=== PATIENT | female | born 1985 | race Caucasian/White ===

== ENCOUNTER 2016-08-29 18:18 | Inpatient (IN) | payer BC, OTHER ==
[2016-08-29] MEDS ORDERED: Dinoprostone* 10 MG VAG.SUPP VAGINAL ONE (19:00)
[2016-08-29] MEDS ORDERED: Zolpidem TAB* 5 MG PO PRN (20:01)
[2016-08-30] MEDS ORDERED: Oxytocin in LR* 20 UNITS/1,000 ML BAG IVPB SCH (09:00)
[2016-08-30 09:08] LABS: Hematocrit 40 % (35-47); Hemoglobin 13.6 g/dl (12.0-16.0); Mean Corpuscular HGB Conc 34 g/dl (31-36); Mean Corpuscular Hemoglobin 30 pg (27-31); Mean Corpuscular Volume 88 fL (80-97); Mean Platelet Volume 10 um3 (7.4-10.4); Red Blood Count 4.54 10^6/ul (4.0-5.4); Red Cell Distribution Width 14 % (10.5-15); White Blood Count 10.1 10^3/ul (3.5-10.8)
[2016-08-30] MEDS ORDERED: OBEPIDURAL* 250 ML ONE (13:46)
[2016-08-30] MEDS ORDERED: Famotidine TAB* 20 MG PO PRN (14:21)
[2016-08-30] MEDS ORDERED: Phenylephrine IV* 40 MCG/ML 10 ML SYRINGE IV PUSH PRN ×2 (14:21)
[2016-08-30] MEDS ORDERED: Sodium Citrate/Citric Acid* 15 ML UDC PO PRN (14:21)
[2016-08-31] MEDS ORDERED: Gentamicin ADULT (*) 40 MG/ML VIAL IVPB ONE (01:31)
[2016-08-31] MEDS ORDERED: Clindamycin 900 MG IVPREMIX(* 900 MG/50 ML SDV IV ONE (01:31)
[2016-08-31] MEDS ORDERED: Lidocaine 2% EPI 1:200000 MPF* 20 ML VIAL ONE (01:44)
[2016-08-31] MEDS ORDERED: fentaNYL* 50 MCG/ML 2 ML VIAL (100 MCG VIAL) ONE (01:45)
[2016-08-31] MEDS ORDERED: OXYTOCIN* 10 UNITS/ML 1 ML VIAL ONE ×2 (01:54→02:54)
[2016-08-31] MEDS ORDERED: Phenylephrine IV* 40 MCG/ML 10 ML SYRINGE ONE (02:22)
[2016-08-31] MEDS ORDERED: Morphine PF AMP (0.5MG/ML)* 5 MG/10 ML AMP ONE (02:25)
[2016-08-31] MEDS ORDERED: Ondansetron INJ* 2 MG/ML VIAL ONE (02:26)
[2016-08-31] MEDS ORDERED: Dexamethasone IV* 4 MG/ML 1 ML (4 MG) ONE (02:26)
[2016-08-31] MEDS ORDERED: Glycerin ADULT SUPP PR PRN (03:17)
[2016-08-31] MEDS ORDERED: fentaNYL* 50 MCG/ML 2 ML VIAL (100 MCG VIAL) IV PRN (03:20)
[2016-08-31] MEDS ORDERED: Acetaminophen IV 1GM/100ML * 100 ML IVPB ONE (03:20)
[2016-08-31] MEDS ORDERED: Nalbuphine* 20 MG/ML 1 ML VIAL IV PRN ×2 (03:20→03:23)
[2016-08-31] MEDS ORDERED: PROCHLORPERAZINE INJ 5 MG/ML 2 ML VIAL IV PRN ×2 (03:20→03:23)
[2016-08-31] MEDS ORDERED: Ondansetron INJ* 2 MG/ML VIAL IV PRN (03:23)
[2016-08-31] MEDS ORDERED: oxyCODONE TAB* 5 MG TAB PO PRN (03:23)
[2016-08-31] MEDS ORDERED: Naloxone* 0.4 MG/ML 1 ML VIAL IV PRN (03:23)
[2016-08-31] MEDS ORDERED: Ketorolac INJ* 30 MG/ML 1 ML VIAL ONE (03:55)
[2016-08-31] MEDS ORDERED: Ketorolac INJ* 30 MG/ML 1 ML VIAL IV ONE (04:00)
[2016-08-31] MEDS: OBEPIDURAL* 250 ML EPIDURAL SCH ×2 (05:07→21:06)
[2016-08-31] MEDS: Acetaminophen TAB* 325 MG PO SCH ×3 (05:08→20:24)
[2016-08-31] MEDS: Docusate CAP* 100 MG PO SCH ×3 (09:12→20:24)
[2016-08-31] MEDS: Simethicone CHEW TAB* 80 MG PO SCH ×4 (09:12→20:24)
[2016-08-31] MEDS: oxyCODONE TAB* 5 MG TAB PO PRN ×2 (11:24→20:25)
[2016-08-31] MEDS: Ketorolac INJ* 30 MG/ML 1 ML VIAL IV SCH ×2 (12:20→20:26)
[2016-08-31] MEDS ORDERED: Acetaminophen TAB* 325 MG PO PRN (19:05)
[2016-08-31] MEDS ORDERED: oxyCODONE/Acetamin 5/325 MG* TAB PO PRN (19:05)
--- NOTE | 2016-08-31 21:54 | OP ---
DATE OF OPERATION: 08/31/16 - ROOM #MCHOB-103 DATE OF : 83 SURGEON: Pricilla Fu MD. JOCKEY VALET: Florecita Khan CNM. ANESTHESIOLOGIST: Hermelinda Tejada MD ANESTHESIA: Epidural PREOPERATIVE DIAGNOSES: Intrauterine gestation at 40+ gestational age, arrest of dilation. POSTOPERATIVE DIAGNOSIS: Intrauterine gestation at 40+ gestational age, arrest of dilation. OPERATIVE PROCEDURE: Primary lower transverse section. ESTIMATED BLOOD LOSS: 800 mL. FLUIDS: Crystalloid. FINDINGS: Female , Apgars of 9 and 9. Weight 8 pounds 2 ounces. Normal appearing placenta. Normal appearing uterus, ovaries, and tubes. COMPLICATIONS: None. COUNTS: All correct. INDICATION: The patient underwent induction of labor. She received Cervidil and then was placed on Pitocin for approximately 18 hours. She had progressed consistently to 8 cm and then remained at 8 cm for over 4 hours. The head was also not descending lower into the pelvis and there was molding that was worsening. Discussion was had with the patient in regards to the option to proceed with primary section or to wait longer and the patient opted for primary section. DESCRIPTION OF PROCEDURE: After informed consent was signed, the patient was taken to the operating room. Her epidural anesthesia was confirmed to be adequate. She was given clindamycin and gentamicin prior to the procedure. She was prepped and draped in the dorsal supine position with a leftward tilt. A timeout was then performed. A Pfannenstiel skin incision was made with a scalpel and carried down to the underlying layer of fascia. The fascia was incised on either side of the midline and the fascial incision was extended laterally with the Pena scissors. The inferior edge of the fascial incision was grasped with Tracy clamps, tented up, and dissected down bluntly. Then, the superior edge of the fascial incision was grasped with Tracy clamps, tented up , and dissected down with a combination of sharp and blunt dissection. The rectus muscles were in the midline and the peritoneum was entered bluntly. The peritoneal incision was extended laterally with blunt pressure. A transverse incision was made to create a bladder flap in the lower uterine segment. The bladder was dissected off the uterus and the bladder blade was inserted. A transverse incision was then made in the lower uterine segment with a scalpel. The uterine incision was extended superiorly and inferiorly with blunt pressure. The infant's head was delivered with fundal pressure, it was in right occiput posterior position. This was followed by the delivery of the shoulders and the rest of the body. After 30 seconds, the cord was clamped x2 and cut and the baby was handed to the paper processing machine helper. Cord bloods were collected. The placenta was delivered with fundal massage and gentle cord traction and appeared to be intact. The uterus was exteriorized and cleared of clots and debris. The uterine incision was then closed with 0 Vicryl in a running locked fashion with the second layer of suture imbricating the first. Abdomen was irrigated and the uterus was placed back into the abdominal cavity. The uterine incision was then inspected and was noted to be hemostatic. The peritoneum was closed with 3-0 chromic in a running unlocked fashion. The fascia was closed with 0 Vicryl in a running unlocked fashion. The subcuticular layer was irrigated. Two interrupted sutures of 3-0 chromic were placed in the subcuticular layer. The skin was then closed with 4-0 Monocryl in a running subcuticular fashion. Incision was cleaned. Mastisol and Steri- Strips were placed, and a dressing was placed. The patient was then cleaned, moved to the stretcher and taken to the recovery room in stable condition. [id number]/[facility] #: [id number] HECTOR
[2016-09-01] MEDS: oxyCODONE/Acetamin 5/325 MG* TAB PO PRN ×3 (03:52→18:28)
[2016-09-01] MEDS: Ibuprofen TAB* 600 MG PO PRN ×3 (03:52→18:27)
[2016-09-01] MEDS: Ketorolac INJ* 30 MG/ML 1 ML VIAL IV SCH (04:14)
[2016-09-01] MEDS: Simethicone CHEW TAB* 80 MG PO SCH ×4 (08:53→21:38)
[2016-09-01] MEDS: Docusate CAP* 100 MG PO SCH ×3 (08:53→21:38)
[2016-09-01] MEDS ORDERED: Ferrous Gluconate TAB* 324 MG TAB PO SCH (09:00)
[2016-09-01 09:04] LABS: Hematocrit 35 % (35-47); Hemoglobin 11.6 g/dl (12.0-16.0); Mean Corpuscular HGB Conc 33 g/dl (31-36); Mean Corpuscular Hemoglobin 29 pg (27-31); Mean Corpuscular Volume 89 fL (80-97); Mean Platelet Volume 10 um3 (7.4-10.4); Red Blood Count 3.98 10^6/ul (4.0-5.4); Red Cell Distribution Width 14 % (10.5-15); White Blood Count 14.7 10^3/ul (3.5-10.8)
[2016-09-02] MEDS: Ibuprofen TAB* 600 MG PO PRN ×4 (00:37→22:40)
[2016-09-02] MEDS: oxyCODONE/Acetamin 5/325 MG* TAB PO PRN ×4 (06:33→20:21)
[2016-09-02] MEDS: Simethicone CHEW TAB* 80 MG PO SCH ×4 (08:53→20:22)
[2016-09-02] MEDS: Docusate CAP* 100 MG PO SCH ×3 (08:53→20:22)
[2016-09-03] MEDS: oxyCODONE/Acetamin 5/325 MG* TAB PO PRN ×3 (01:12→09:10)
[2016-09-03] MEDS: Ibuprofen TAB* 600 MG PO PRN ×2 (05:35→11:55)
[2016-09-03 08:33] VITALS: BP 134/101
[2016-09-03] MEDS: Docusate CAP* 100 MG PO SCH ×2 (09:05→13:24)
[2016-09-03] MEDS: Simethicone CHEW TAB* 80 MG PO SCH ×2 (09:05→11:55)
[2016-09-03] MEDS ORDERED: Measles, Mumps,Rubella VACC* 0.5 ML/VIAL ONE (09:58)
== END 2016-09-03 13:43 | disposition home or self-care (01) | DRG 766 ==
LOC: MCHOBOUT 18:18 → MCHOB 18:34
PROVIDERS: ADMIT Nurse Practitioner; ATTEND Obstetrics & Gynecology
PROC: 3E033VJ Introduction of Other Hormone into Peripheral Vein, Percutaneous Approach (ICD-10-PCS; 2016-08-31)
PROC: 10907ZC Drainage of Amniotic Fluid, Therapeutic from Products of Conception, Via Natural or Artificial Opening (ICD-10-PCS; 2016-08-31)
PROC: 10D00Z1 Extraction of Products of Conception, Low, Open Approach (ICD-10-PCS; principal; 2016-08-31 01:55)
DX: O62.1 Secondary uterine inertia (principal); O64.0XX0 Obstructed labor due to incomplete rotation of fetal head, not applicable or unspecified; O48.0 Post-term pregnancy; Z3A.41 41 weeks gestation of pregnancy; Z37.0 Single live birth; Z88.0 Allergy status to penicillin; Z88.7 Allergy status to serum and vaccine; Z91.040 Latex allergy status
CPT/HCPCS: 36415; 59200; 76815; 85025; 86850; 86900; 86901; 90707; A9270-GY; J1100; J1580; J1885; J2405; J2590; J3010

== ENCOUNTER 2018-12-22 23:56 | Inpatient (IN) | payer BC, OTHER ==
[2018-12-23 01:18] LABS: ABS Eosinophils 0.2 10^3/ul (0-0.6); ABS Lymphocytes 2.4 10^3/ul (1.0-4.8); ABS Monocytes 0.8 10^3/ul (0-0.8); ABS Neutrophils 9.7 10^3/ul (1.5-7.7); Eosinophil % 1.4 %; Hematocrit 39 % (35-47); Hemoglobin 13.2 g/dL (12.0-16.0); Lymphocyte % 18.1 %; Mean Corpuscular HGB Conc 34 g/dL (31-36); Mean Corpuscular Hemoglobin 29 pg (27-31); Mean Corpuscular Volume 85 fL (80-97); Mean Platelet Volume 9.8 fL (7.4-10.4); Nucleated Red Blood Cells % 0.1; Platelet Count 184 10^3/uL (150-450); Red Blood Count 4.54 10^6 /uL (3.70-4.87); Red Cell Distribution Width 14 % (10-15); White Blood Count 13.2 10^3/uL (3.5-10.8)
[2018-12-23] MEDS ORDERED: Promethazine INJ(RESTRICTED)* 25 MG/ML 1 ML VIAL IV ONE (01:30)
[2018-12-23 01:38] LABS: Urine Benzodiazepine Screen None Detected (None Detect); Urine Opiates Screen None Detected (None Detect)
[2018-12-23] MEDS ORDERED: Nalbuphine* 10 MG/ML 1 ML VIAL IV ONE (01:45)
[2018-12-23] MEDS ORDERED: Lactated Ringers 1000 ML Bag* 1,000 ML IV ONE (02:25)
[2018-12-23] MEDS ORDERED: Buffered Lidocaine 1% SYRIN* 1 ML/SYRINGE INTRADERM ONE (02:25)
--- NOTE | 2018-12-23 02:38 | HP ---
General Information - Reason for Visit Patient presents to Labor/delivery with contractions to r/o labor. - General Information Maternal Age: 33 Grav: 4 Para: 2 SAB: 0 IEA: 1 Estimated Due Date: 01/01/19 Determined By: LMP Gestational Age in Weeks/Days: 38 5/7 Maternal Blood Type and Rh: A Positive - Results this Serology/RPR Result: Non-Reactive Rubella Result: Immune HBsAg Result: Negative HIV Result: Negative GBS Culture Result: Negative Past Medical History Delivery History: Hx C/Section, See Records Pertinent Past Medical History: See Records Past Medical History Comment: None Pertinent Past Surgical History: See Records Pertinent Family History: See Records - Antepartal Records Antepartal Records: Reviewed, Complicated by: - Prior section for Arrest disorder Review of Systems Constitutional: Uncomfortable CV Complaint: No Respiratory: Shortness of Breath: No Gastrointestinal: No Nausea/Vomiting, Normal Bowel Movement Genitourinary: No Dysuria, No Bleeding, No Leaking Fluid Musculoskeletal: Contractions Neurological: No Headache, No Visual Changes Movement: Normal Exam Allergies/Adverse Reactions: Allergies Penicillins Allergy (Unknown, Verified 12/23/18 01:38) Unknown Reaction Details latex Allergy (Verified 12/23/18 01:38) Hives/Diff.Breathing/Itching MS Sulfate [Sulfate] Allergy (Verified 08/29/16 20:34) Hives/Diff.Breathing/Itching Sulfa (Sulfonamide Antibiotics) Allergy (Verified 12/23/18 01:38) Hives/Diff.Breathing/Itching Temp 97.8 P 87 BP 114/70 POx 100% RA RR 20 Lab Values - Entire Visit: Laboratory Tests 12/23/18 12/23/18 12/23/18 01:01 01:01 01:01 WBC 13.2 H RBC 4.54 Hgb 13.2 Hct 39 MCV 85 MCH 29 MCHC 34 RDW 14 Plt Count 184 MPV 9.8 Neut % (Auto) 73.8 Lymph % (Auto) 18.1 [place] % (Auto) 6.4 Eos % (Auto) 1.4 Baso % (Auto) 0.3 Absolute Neuts (auto) 9.7 H Absolute Lymphs (auto) 2.4 Absolute Monos (auto) 0.8 Absolute Eos (auto) 0.2 Absolute Basos (auto) 0.0 Absolute Nucleated RBC 0.0 Nucleated RBC % 0.1 Urine Opiates Screen None detected Ur Barbiturates Screen None detected Ur Phencyclidine Scrn None detected Ur Amphetamines Screen None detected U Benzodiazepines Scrn None detected Urine Cocaine Screen None detected U Cannabinoids Screen None detected Blood Type A Positive Antibody Screen Negative - Measurements Height: 5 ft 3 in Weight: 213 lb Weight in lbs: 213.785033 Body Mass Index (BMI): 37.7 Pre- Weight: 180 lb Weight Gained This : 33 lbs and 0 ozs - Exam Breast: Breast Exam Deferred CVA: No CVA Tenderness Extremities: No Edema Heart: Normal Rhythm/Heart Sounds HEENT: No Significant Findings Lungs: Clear Bilaterally Rectal: Rectal Exam Deferred Reflexes: DTR 2+ Thyroid: No Thyromegaly - Abdominal Exam Abdomen Exam: Fundal Height Consistent with Dates - Ultrasound/Biophysical Profile Ultrasound Status: Not Done Biophysical Profile: Normal Reactive NST Targeted Exam Findings See L&D Outpatient Visit Provider Note for Findings: N/A Cervical Exam: 4cm Effacement: 80% Station: -1 Presenting Part: Vertex Membrane Status: Intact Bleeding/Discharge: None EFM Findings - External Monitor Findings Baseline Heart Rate: 130 External Monitor Findings: Accelerations Present Contractions: Regular, Moderate, 45-90 Seconds - Q4-7 min Assessment/Plan - Assessment at 38+ weeks in labor to attempt TOLAC. - Obstetrical Risk Factors Obstetrical Risk Factors: Obesity, Previous C/Section in Labor - Plan Plan: Admit - Anticipate Vaginal Delivery - Date/Time of Admission Date of Admission: 12/23/18 Time of Admission: 02:35
[2018-12-23] MEDS ORDERED: Lactated Ringers 1000 ML Bag* 1,000 ML IV SCH (03:00)
[2018-12-23] MEDS ORDERED: Morphine 10 MG/ML VIAL (1 ml) IM ONE (13:45)
== END 2018-12-23 19:30 | disposition home or self-care (01) | DRG 833 ==
LOC: MCHOBOUT 23:56 → MCHOB 12-23 00:49
PROVIDERS: ADMIT Obstetrics & Gynecology; ATTEND Obstetrics & Gynecology
PROC: 4A1HXCZ Monitoring of Products of Conception, Cardiac Rate, External Approach (ICD-10-PCS; principal; 2018-12-23)
DX: O47.1 False labor at or after 37 completed weeks of gestation (principal); O99.213 Obesity complicating pregnancy, third trimester; O34.211 Maternal care for low transverse scar from previous cesarean delivery; Z88.0 Allergy status to penicillin; Z88.2 Allergy status to sulfonamides; Z88.8 Allergy status to other drugs, medicaments and biological substances; Z91.040 Latex allergy status; Z3A.38 38 weeks gestation of pregnancy
CPT/HCPCS: 36415; 80307; 85025; 86850; 86900; 86901; J2270; J2300; J2550